=== PATIENT | female | born 1985 | race Caucasian/White ===

== ENCOUNTER 2017-09-01 07:17 | Day surgery (SDC) | payer BC, OTHER ==
[2017-08-29 10:32] VITALS: BP 98/61
[2017-08-29 11:24] LABS: INTERNATIONAL NORMALIZED RATIO 0.99 (0.93-1.1); PROTHROMBIN TIME 10.2 Seconds (9.6-11.5)
[2017-08-29 11:28] LABS: BASOPHILS # (AUTO) 0.04 x10^3/uL (0-0.1); BASOPHILS % (AUTO) 1 % (0-1); EOSINOPHILS # (AUTO) 0.06 x10^3/uL (0-0.4); EOSINOPHILS % (AUTO) 1 % (1-7); LYMPHOCYTES # (AUTO) 2.02 x10^3/uL (1-3.4); LYMPHOCYTES % (AUTO) 36 % (22-44); MD NO; MEAN CORPUSCULAR HEMOGLOBIN 30.5 pg (27.0-34.8); MEAN CORPUSCULAR HGB CONC 33.6 g/dL (32.4-35.8); MEAN CORPUSCULAR VOLUME 90.8 fL (80-100); MEAN PLATELET VOLUME 8.4 fL (7.4-10.4); MONOCYTES # (AUTO) 0.38 x10^3/uL (0.2-0.8); MONOCYTES % (AUTO) 7 % (2-9); NEUTROPHILS # (AUTO) 3.17 x10^3/uL (1.8-6.8); NEUTROPHILS % (AUTO) 56 % (42-75); PLATELET COUNT 256 x10^3/uL (130-400); RED BLOOD COUNT 4.94 x10^6/uL (3.82-5.3); RED CELL DISTRIBUTION WIDTH 13.4 % (9.6-15.2)
[2017-08-29 11:29] LABS: ALBUMIN 4.3 g/dL (3.4-5.0); CHLORIDE 108 mmol/L (98-107)
[2017-08-29 11:34] LABS: ALANINE AMINOTRANSFERASE 18 U/L (12-78); ALKALINE PHOSPHATASE 74 U/L (45-117); ANION GAP 8 mmol/L (5-15); BILIRUBIN,TOTAL 0.6 mg/dL (0.2-1.0); CALCIUM 9.1 mg/dL (8.5-10.1); TOTAL PROTEIN 8.5 g/dL (6.4-8.2)
[~2017-09-01] VITALS: Ht 157.5 cm; Wt 58.2 kg
[~2017-09-01 07:17] MED LIST: BUPIVACAINE/PF 0.25% ONE; NONE PER PT
[2017-09-01] MEDS ORDERED: FENTANYL PF 100 MCG/2ML IV PRN (07:30)
[2017-09-01] MEDS ORDERED: OXYcodone 5 MG/5 ML ORAL.SOL UDC PO PRN (07:30)
[2017-09-01] MEDS ORDERED: PROMETHAZINE 12.5 MG SUPP PR PRN (07:30)
[2017-09-01] MEDS ORDERED: ACETAMINOPHEN 325 MG TABLET PO PRN (07:30)
[2017-09-01] MEDS ORDERED: LACTATED RINGERS 1,000 ML IV SCH (07:39)
[2017-09-01 07:40] VITALS: BP 98/61
[2017-09-01] MEDS ORDERED: LIDOCAINE 1%, 2ML SQ PRN (08:00)
[2017-09-01] MEDS ORDERED: MIDAZOLAM 1 MG/ML, 2ML ONE (09:15)
[2017-09-01] MEDS ORDERED: PROPOFOL 10 MG/ML, 20ML ONE (09:15)
[2017-09-01] MEDS ORDERED: CEFAZOLIN 1,000 MG ONE ×2 (09:15)
[2017-09-01] MEDS ORDERED: FENTANYL PF 100 MCG/2ML ONE (09:15)
[2017-09-01] MEDS ORDERED: ONDANSETRON 2MG/ML, 2ML ONE (09:16)
[2017-09-01] MEDS ORDERED: DEXAMETHASONE 4 MG/ML, 1ML ONE ×2 (09:16)
[2017-09-01] MEDS ORDERED: GLYCOPYRROLATE 0.4 MG/2 ML, 2ML ONE (10:15)
[2017-09-01] MEDS ORDERED: EPINEPHRINE 1 MG/ML, 1ML INFIL ONE (10:16)
[2017-09-01] MEDS ORDERED: KETOROLAC 30 MG/1 ML ONE (10:26)
[2017-09-01] MEDS ORDERED: EPINEPHRINE 1 MG/ML, 1ML ONE (10:38)
== END 2017-09-01 15:35 ==
LOC: OUT 07:17
PROVIDERS: ATTEND Specialist
DX: D06.1 Carcinoma in situ of exocervix (principal); K21.9 Gastro-esophageal reflux disease without esophagitis; Z72.89 Other problems related to lifestyle; Z87.891 Personal history of nicotine dependence
CPT/HCPCS: 36415; 57522; 80053; 84703; 85025; 85610; 85730; 86850; 86900; 88305; 88307; J0171; J1100; J1885; J2405; J2704; J3010; J3490; J7120; J0690; J2250